=== PATIENT | male | born 1945 | race Caucasian/White ===

== ENCOUNTER 2016-06-23 21:20 | Inpatient (IN) | payer OTHER ==
[~2016-06-23] VITALS: Ht 195.6 cm; Wt 124.7 kg
--- NOTE | 2016-06-23 21:39 | NUR ---
RECEIVED 71 YO MALE C/O SUDDEN ONSET OF RIGHT SHOULDER PAIN RADIATING TO RIGHT ARM AND HAND. RIGHT ARM AND ELBOW PAIN INCREASES WITH MOVEMENT AND PT IS UNABLE TO SQUEEZE RIGHT FINGERS. PT REPORTS NO STRENGTH IN RIGHT FINGERS. NO FACIAL DROOP, SLURRED SPEECH OR RIGHT LEG SYMPTOMS.
--- NOTE | 2016-06-23 21:40 | NUR ---
PT REPORTS PAIN STARTED ABOUT 7 PM TONITE
--- NOTE | 2016-06-23 21:47 | NUR ---
SPOKE TO DR GARCIA CONCERNING SYMPTOMS. PT SENT TO [facility] FOR EKG, BLOOD DRAWN AND THEN CT SCAN OF HEAD.
--- NOTE | 2016-06-23 22:03 | ED GENERAL ADULT ---
History of Present Illness General Chief Complaint: Upper Extremity Problem Stated Complaint: R SHOULDER PAIN RADIATING DOWN ARM AND HANDS, -CP Source: patient, family Exam Limitations: no limitations Allergies Coded Allergies: NO KNOWN ALLERGIES (04/20/15) Reconcile Medications Aspirin (Aspirin*) 81 MG TAB.CHEW 81 MG PO DAILY HEART HEALTH Atorvastatin Calcium 80 MG TABLET 80 MG PO 1700 HEART PROTECTION Diclofenac Sodium 75 MG TABLET.DR 1 TAB PO BID PRN OSTEOARTHRITIS (Reported) Lisinopril 20 MG TABLET 1 TAB PO DAILY HTN (Reported) Metformin HCl (Metformin HCl ER) 500 MG TAB.ER.24 1 TAB PO DAILY DIABETES ( Reported) Triage Note: RECEIVED 71 YO MALE C/O SUDDEN ONSET OF RIGHT SHOULDER PAIN RADIATING TO RIGHT ARM AND HAND. RIGHT ARM AND ELBOW PAIN INCREASES WITH MOVEMENT AND PT IS UNABLE TO SQUEEZE RIGHT FINGERS. PT REPORTS NO STRENGTH IN RIGHT FINGERS. NO FACIAL DROOP, SLURRED SPEECH OR RIGHT LEG SYMPTOMS. Triage Nurses Notes Reviewed? yes HPI: Patient is a 71-year-old male presents complaining of right upper arm pain and weakness of his right hand. Symptoms onset between 6:30 and 7 PM this evening. Pain is moderate, worsened with arm movement. Weakness in the right hand is moderate to severe. Patient was at a meeting when he had the onset of his symptoms. Patient is right-hand dominant. Patient denies blurred vision, change in his speech, recent trauma (ALY MUNOZ) Vital Signs & Intake/Output Vital Signs & Intake/Output ED Intake and Output 06/25 0000 06/24 1200 Intake Total 240 Output Total Balance 240 Intake, Oral 240 Patient 275 lb Weight Past History Travel History Traveled to [place] past 21 day No Medical History Any Pertinent Medical History? see below for history Neurological: NONE EENT: NONE Cardiovascular: hypertension Respiratory: NONE Gastrointestinal: NONE Hepatic: NONE Renal: NONE Musculoskeletal: NONE Psychiatric: NONE Endocrine: diabetes Tetanus Vaccine: 04/20/15 Surgical History Surgical History: non-contributory Psychosocial History What is your primary language Danish Tobacco Use: Current Daily Use Daily Tobacco Use Amount/Type: => 5 Cigarettes daily Family History Hx Contributory? No (ALY MUNOZ) Review of Systems Review of Systems Constitutional: Denies: chills, fever. EENTM: Denies: blurred vision, visual changes. Respiratory: Denies: cough, short of breath. Cardiovascular: Denies: chest pain. GI: Denies: abdominal pain. Musculoskeletal: Reports: see HPI. Denies: back pain, neck pain. Skin: Reports: no symptoms. Neurological/Psychological: Reports: see HPI. Denies: headache. Hematologic/Endocrine: Denies: bruising, bleeding. Immunologic/Allergic: Denies: splenectomy. (RITO SIEGEL,AL[place]) Physical Exam Physical Exam General Appearance: well developed/nourished, no apparent distress, alert, awake Head: atraumatic, normal appearance Eyes: Bilateral: normal appearance. Ears, Nose, Throat: normal pharynx, normal ENT inspection, hearing grossly normal Neck: normal inspection, supple, full range of motion Respiratory: normal breath sounds, no respiratory distress, lungs clear Cardiovascular: regular rate/rhythm (no appreciable murmur) Peripheral Pulses: 2+ radial (R) Gastrointestinal: soft, non-tender Back: normal inspection, normal range of motion Extremities: normal inspection, normal capillary refill, decreased public health social worker strength right hand 3/5. Neurologic/Psych: decreased public health social worker strength right hand. right biceps and brachioradialis reflexes 2+. right biceps strength and shoulder strength 5/5 Reflexes: 2+: bicep (R). Skin: intact, normal color, warm/dry Lymphatic: no anterior cervical kita Core Measures ACS in differential dx? Yes CVA/TIA Diagnosis: Yes NIH Stroke Scale: Total 0 Dt/Tm Last Known Well: Yes Date Last Known Well: 06/23/16 Time Last Known Well: 1844 Neurological S/S of CVA: Muscle Weakness, Weakness of Limb Symptom start date: 06/24/16 Symptom start time: 1844 Severe Sepsis Present: No Septic Shock Present: No Bedside Swallow Eval Done: Yes Result of Evaluation: Pass (ALY MUNOZ) Progress Differential Diagnoses I considered the following diagnoses in my evaluation of the patient: Nerve impingement, cord compression, CVA, rotator cuff injury, radial nerve palsy Diagnostic Imaging: Viewed by Me: CT Scan. Discussed w/RAD: CT Scan. Initial ED EKG: none Comments: PATIENT: JEFF MOSQUERA PRESENT AGE: 71 PATIENT ACCOUNT NO: [id number] : 47 LOCATION: [facility] ORDERING PHYSICIAN: ALY SIEGEL SERVICE DATE: 06/23/16 EXAM TYPE: CAT - CT CERV SPINE WO IV CONTRAST; CT HEAD WO IV CONTRAST EXAMINATION: NONCONTRAST HEAD CT NONCONTRAST CERVICAL SPINE CT INDICATION INFORMATION: Left arm weakness and pain. Cervical radiculopathy. COMPARISON: None TECHNIQUE: Separate noncontrast CT examinations of the head and cervical spine were performed. Coronal and sagittal images were created for each examination at the technologist workstation. FINDINGS: Head: There is no evidence of acute intracranial hemorrhage or territorial infarction. No abnormal mass effect or midline shift is seen. Ferguson to white matter differentiation is well preserved. No extra-axial fluid collections are identified. No hydrocephalus. No significant volume loss. There is no abnormal attenuation within the brain parenchyma. The osseous structures and soft tissues are normal. There is retention cyst in the right maxillary sinus. The mastoid air cells are well aerated. The remaining paranasal sinuses which are visualized are well aerated. Cervical spine: There is anatomic alignment of the vertebral bodies and posterior elements. The atlantoaxial and atlantooccipital articulations are intact. Vertebral body heights are maintained. There is multilevel intervertebral disc space narrowing with endplate osteophyte formation and facet arthropathy. Moderate bony neuroforaminal narrowing is seen on the left at C2-C3 and C3-C4. Additional more mild neuroforaminal narrowing is seen at multiple additional levels. No evidence of acute fracture. No prevertebral soft tissue swelling. Visualized portions of the lung apices are unremarkable. The thyroid gland is unremarkable. IMPRESSION: 1. No acute intracranial findings. 2. Moderate multilevel degenerative changes of the cervical spine, most prominently seen on the left at C2-C3 and C3-C4. DICTATED BY: MARC QUARLES MD DATE/TIME DICTATED:06/23/162254 INDUSTRIAL ORDER CLERK:ANTWON DATE/TIME TRANSCRIBED:06/23/162254 CONFIDENTIAL, DO NOT COPY WITHOUT APPROPRIATE AUTHORIZATION. <Electronically signed in Other Vendor System> SIGNED BY: MARC QUARLES MD 06/23 3422 (ALY MUNOZ) Plan of Care: Orders Procedure Date/time Status Discharge Patient 06/24 UNK Active 2230: Discussed with and seen by Dr. Rockwell. 06/23/2016 11:31:21 PM: Patient reevaluated. Results of CT scans discussed with patient and his . Patient having weakness and decreased flexion of his right second and third digits. Neurology paged to discuss. 06/23/2016 11:35:51 PM: Discussed with Dr. Powers: cannot say if this is central or peripheral etiology of neurologic deficit. Patient will need MRI imaging to further characterize. Dr. Rockwell discussed patient with Dr. Baltazar for admission. (ALY MUNOZ) Departure Departure Time of Disposition: 23 Disposition: STILL A PATIENT Condition: Stable Clinical Impression Primary Impression: Right hand weakness Referrals: DMITRIY SCHMIDT MD (PCP/Family) Departure Forms: Customer Survey General Discharge Information Prescriptions: Current Visit Scripts Aspirin (Aspirin*) 81 MG PO DAILY #30 Atorvastatin Calcium 80 MG PO 1700 #30 (ALY MUNOZ) Admission Note Spoke With: EDUARDO BALTAZAR MD Documentation of Exam: Documentation of any treatments & extenuating circumstances including Concerns Regarding Discharge (functional status, medication knowledge or non-compliance, living conditions, etc.) that warrant an admission rather than observation: Patient presents with significant right hand weakness of an unclear cause. Although stroke is a possibility, so are C-spine pathology and radiculopathy/ neuropraxia. The patient's symptoms involve his dominant hand placing him at very high morbidity if the underlying cause is not determined and treated. Patient should be admitted for telemetry due to the possibility of dysrhythmia and associated cardioembolic phenomenon. He should have repeated neurologic checks. Neurology consultation should also be obtained as well as an MRI scan of the brain and cervical spine. Patient should also be treated for his symptoms. Given the significant debility the patient is currently suffering, physical therapy should also be obtained. I feel he will require a multiple day hospitalization. PA/PIPE SMOKING MACHINE OFFBEARER Co-Sign Statement Statement: ED Attending supervision documentation- [x] I saw and evaluated the patient. I have also reviewed all the pertinent lab results and diagnostic results. I agree with the findings and the plan of care as documented in the PA's/PIPE SMOKING MACHINE OFFBEARER's documentation. Patient presents for weakness of the right shoulder and right hand noted that just before 7:00 this evening while coming out of a meeting. Patient denies any prior episodes. He states he is having great difficulty closing his hand. He denies any associated trauma. He denies any unusual exertion. Speech and gait are unaffected. Patient has weakness of the right hand (radial median and ulnar nerve distributions) with otherwise normal sensation to light touch and normal biceps deep tendon reflex. Concern for CVA, nerve impingement or cervical cord compression. [] I have reviewed the ED Record and agree with the PA's/PIPE SMOKING MACHINE OFFBEARER's documentation. [] Additions or exceptions (if any) to the PAs/PIPE SMOKING MACHINE OFFBEARER's note and plan are summarized below: [] (RADHA REGAN,MAXX Rowell) Critical Care Note Critical Care Note Critical Care Time: non-applicable (RITO SIEGEL,AL[place])
[2016-06-23 22:09] LABS: ABSOLUTE BASOPHIL COUNT 0 /CUMM (0.0-0.2); ABSOLUTE EOSINOPHIL COUNT 0.1 /CUMM (0.0-0.7); ABSOLUTE GRANULOCYTE CT 8.5 /CUMM (1.4-6.5); BASOPHIL % 0.3 % (0.0-2.0); EOSINOPHIL % 1.3 % (0-5); GRANULOCYTE % 79.5 % (42.2-75.2); MEAN CORPUSCULAR HGB 31.9 PG (27.0-31.0); MEAN CORPUSCULAR HGB CONC 34.3 G/DL (33.0-37.0); MEAN CORPUSCULAR VOLUME 93.1 FL (80.0-94.0); MEAN PLATELET VOLUME 8.2 FL (7.4-10.4); PLATELET COUNT 168 /CUMM (130-400); RBC DISTRIBUTION WIDTH 12.9 % (11.5-14.5); RED BLOOD CELL CT 4.51 /CUMM (4.70-6.10); WHITE BLOOD CELL COUNT 10.6 /CUMM (4.8-10.8)
[2016-06-23 22:18] LABS: PT 11.8 SEC (9.4-12.5)
--- NOTE | 2016-06-23 22:19 | NUR ---
PT TO CT.
--- NOTE | 2016-06-23 22:30 | NUR ---
RETURNED FROM CT VIA W/C PT ABLE TO BALANCE ON 1 LEG WHILE TRANSFERRING TO STRETCHER.
--- NOTE | 2016-06-23 23:03 | CT SCAN REPORT ---
EXAMINATION: NONCONTRAST HEAD CT NONCONTRAST CERVICAL SPINE CT INDICATION INFORMATION: Left arm weakness and pain. Cervical radiculopathy. COMPARISON: None TECHNIQUE: Separate noncontrast CT examinations of the head and cervical spine were performed. Coronal and sagittal images were created for each examination at the technologist workstation. FINDINGS: Head: There is no evidence of acute intracranial hemorrhage or territorial infarction. No abnormal mass effect or midline shift is seen. Ferguson to white matter differentiation is well preserved. No extra-axial fluid collections are identified. No hydrocephalus. No significant volume loss. There is no abnormal attenuation within the brain parenchyma. The osseous structures and soft tissues are normal. There is retention cyst in the right maxillary sinus. The mastoid air cells are well aerated. The remaining paranasal sinuses which are visualized are well aerated. Cervical spine: There is anatomic alignment of the vertebral bodies and posterior elements. The atlantoaxial and atlantooccipital articulations are intact. Vertebral body heights are maintained. There is multilevel intervertebral disc space narrowing with endplate osteophyte formation and facet arthropathy. Moderate bony neuroforaminal narrowing is seen on the left at C2-C3 and C3-C4. Additional more mild neuroforaminal narrowing is seen at multiple additional levels. No evidence of acute fracture. No prevertebral soft tissue swelling. Visualized portions of the lung apices are unremarkable. The thyroid gland is unremarkable. IMPRESSION: 1. No acute intracranial findings. 2. Moderate multilevel degenerative changes of the cervical spine, most prominently seen on the left at C2-C3 and C3-C4.
--- NOTE | 2016-06-23 23:03 | NUR ---
BOTH PATIENT AND SPOUSE SLEEPING. AWAITING CT RESULTS
--- NOTE | 2016-06-24 00:33 | History & Physical ---
JAQUELIN REGAN,LUCAS 06/24/16 0031: General Information and HPI MD Statement: I have seen and personally examined JEFF MOSQUERA and documented this H&P. The patient is a 71 year old M who presented with a patient stated chief complaint of []. Source of Information: patient, family Exam Limitations: no limitations History of Present Illness: Patient is a 71-year-old male significant past medical history of hypertension, type 2 diabetes presented with chief complaints of pain in right shoulder. Preliminary right shoulder started at 7 p.m.. 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 On examination, patient is not able to overhead abduct his arm. On further evaluation, we found that the patient is working in [employer], and occassionally lift weight, although he denies any correlation of lifting weight and suudenly started having pain. Denies of any headache, nausea, vomiting, fall, trauma, weakness in any part of the body, incontinence of stool and urine, slurring of the speech, difficulty in the swallowing. Allergies-no known drug allergies Personal history-he is retired 5 years ago and now working in [employer], smokes 1 PPD since last 35 years and trying to quit, social drinker, denies illicit drug use family history -noncontributory Allergies/Medications Allergies: Coded Allergies: NO KNOWN ALLERGIES (04/20/15) Past History Travel History Traveled to [place] past 21 day No Medical History Neurological: NONE EENT: NONE Cardiovascular: hypertension Respiratory: NONE Gastrointestinal: NONE Hepatic: NONE Renal: NONE Musculoskeletal: NONE Psychiatric: NONE Endocrine: diabetes Tetanus Vaccine: 04/20/15 Surgical History Surgical History: non-contributory Review of Systems Review of Systems Constitutional: Denies: no symptoms, see HPI, chills, diaphoresis, fever, malaise, weakness, unexplained weight loss. EENTM: Denies: no symptoms. Cardiovascular: Denies: no symptoms. Respiratory: Denies: no symptoms. GI: Denies: no symptoms. Genitourinary: Reports: frequency. Musculoskeletal: Reports: back pain, joint pain, neck pain. Skin: Denies: no symptoms. Neurological/Psychological: Reports: anxiety, unable to move upper ext. Exam & Diagnostic Data Last 24 Hrs of Vital Signs/I&O Vital Signs Date Time Temp Pulse Resp B/P Pulse O2 O2 Flow FiO2 Ox Delivery Rate 06/24 0050 98.5 82 16 155/85 97 06/23 2141 99.0 78 16 144/73 96 Room Air Intake & Output 06/24 0800 06/24 0000 06/23 1600 Intake Total 0 Output Total Balance 0 Intake, Oral 0 Patient 124.738 kg Weight Physical Exam General Appearance Alert, Oriented X3, Cooperative, No Acute Distress Skin No Rashes, No Breakdown HEENT Atraumatic, PERRLA, EOMI Neck Supple, No JVD Cardiovascular Normal S1, Normal S2, No Murmurs Lungs Clear to Auscultation, Normal Air Movement Abdomen Soft, No Tenderness Neurological Normal Gait, Normal Speech, Strength at 5/5 X4 Ext, Normal Tone, Sensation Intact, Cranial Nerves 3-12 NL, Reflexes 2+, decrease 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 in right fist, painful movents of fingers, sensation is intact in the right arm (the and) Extremities No Clubbing, No Cyanosis, No Edema Vascular Normal Pulses, Pulses Symmetrical ( a) Last 24 Hrs of Labs/[place]: Laboratory Tests 06/23/162158: Anion Gap 13, Estimated GFR > 60, BUN/Creatinine Ratio 22.5, Glucose 118 H, Hemoglobin A1c Pending, Calcium 9.5, Total Bilirubin 0.9, AST 30, ALT 58, Alkaline Phosphatase 63, Total Protein 6.5, Albumin 4.1, Globulin 2.4, Albumin/ Globulin Ratio 1.7, PT 11.8, INR 1.13, D-Dimer 217, CBC w Diff NO MAN DIFF REQ, RBC 4.51 L, MCV 93.1, MCH 31.9 H, RDW 12.9, MPV 8.2, Gran % 79.5 H, Lymphocytes % 9.8 L, Monocytes % 9.1, Eosinophils % 1.3, Basophils % 0.3, Absolute Granulocytes 8.5 H, Absolute Lymphocytes 1.0 L, Absolute Monocytes 1.0 H, Absolute Eosinophils 0.1, Absolute Basophils 0, PUBS MCHC 34.3 Diagnostic Data EKG Results Heart rate 79, QTC 409, normal sinus rhythm, no ST-T wave changes Assessment/Plan Assessment: Patient is a 71-year-old male significant past. He history of hypertension, type 2 diabetes presented with chief complaints of pain in right shoulder. Vital signs at the time of admission -temperature 99.9, pulse 70, respiratory rate 16, blood pressure 141/72, Xanax, SPO2 96% on room air CT scan of head and cervical spine - No acute intracranial findings. Moderate multilevel degenerative changes of the cervical spine, most prominently seen on the left at C2-C3 and C3-C4. Pertinent labs -CBC -Wnl, Granulocyte -79.5, Na -132, rest BEp -wnl EKG -Heart rate 79, QTC 409, normal sinus rhythm, no ST-T wave changes Plan- Acute neurological deficit probably secondary to CVA, cord compression,carotid dissection * CT scan of head is normal * We will do MRI brain to r/o stroke and cx spine to know cord compression, and MRA for possible caroitd dissection * We will do echo - to r/o PFO, valular abnormality * we will place consult for cardiology and neurology and follow their rcms * Neurocheck Q4 Pain in right shoulder - tendinitis/tendon rupture * We will do shoulder X ray and if needed than CT shoulder * We will consider Orhtopedics consult * Pain medicines according to pain scale Hypertention * we will continue Lisinopril as before Type 2 DM * We will check Blood Sugar TID/HS * Novalog according to sliding scale * if everything is negative we will restart him on Metformin on home doses Diet - carbohydrate type -2 Diet DVT prophylaxis - ALPS/Heparin Code status -FC As Ranked By This Provider Problem List: 1. Shoulder pain, right 2. Hypertension 3. Type 2 diabetes mellitus Core Measures/Miscellaneous Acute Coronary Syndrome ACS Diagnosis: No Cerebrovascular Accident CVA/TIA Diagnosis: Yes Date Last Known Well: 06/23/16 Time Last Known Well: 1844 Neurological S/S of CVA: Muscle Weakness, Weakness of Limb Symptom Start Date: 06/24/16 Symptom Start Time: 1844 Bedside Swallow Eval Done: Yes Result of Evaluation: Pass Congestive Heart Failure CHF Diagnosis: No Venous Thromboembolism VTE Risk Factors: Age > 40, Obesity [facility] prophylaxis d/t: No contraindications No VTE Pharm Prophylaxis d/t: No contraindications VTE Diagnosis: No VTE Type: NONE VTE Confirmed by (Test): NONE Severe Sepsis Severe Sepsis Present: No Septic Shock Septic Shock Present: No Miscellaneous Documentation Attending Case Discussed With: Dr. Eduardo Baltaazr Primary Care Physician: BRAYAN REGAN,DMITRIY Gonzales Patient sees these Specialists Monae Ponce MD galley hand Dr. Baker medical assisting instructor Dr. Turner urologist Level of Patient Care: Telemetry SHANELLE LOPEZ 06/24/16 0039: General Information and HPI Allergies/Medications Home Med list Diclofenac Sodium 75 MG TABLET.DR 1 TAB PO BID PRN OSTEOARTHRITIS (Reported) Lisinopril 20 MG TABLET 1 TAB PO DAILY HTN (Reported) Metformin HCl (Metformin HCl ER) 500 MG TAB.ER.24 1 TAB PO DAILY DIABETES ( Reported) Resident Review Statement Resident Statement: examined this patient, discussed with senior internet sales consultant, agreed with senior internet sales consultant, discussed with family, reviewed EMR data (avail), discussed with nursing , discussed with case mgmt, reviewed images, amended to note Other Findings: 71-year-old man who is a current smoker, the past medical history of hypertension, wga-noamkcg-ojwmrvtqv diabetes mellitus, BPH presented with a chief complaint of sudden onset of right shoulder pain radiating to the arm and hand together with weakness of his right hand that started around 6:37 PM this evening. According to the patient he was in his usual state of health up until 6:37 PM this evening when he started to experience sudden onset of right-sided shoulder pain with subsequent tingling and paresthesias in his elbow and fingers. He states that he has a dull ache in his right shoulder as well as his wrists and took joint and feels funny in the right arm. He denies any history of trauma however does admit to having lifted heavy boxes earlier this morning. Of note patient had come home from work and was away on an office meeting when the symptoms started. He denies any headache, blurry vision, chest pain, palpitations, nausea, vomiting, diaphoresis, recent history of infection, fever, chills, photophobia, any seizure-like activity including urinary or fecal incontinence, tongue biting or jerking movements. 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 He has no surgical history, no known drug allergies however he is a current smoker with a [id number] smoking history. Vitals at the time of admission blood pressure 144/73, respiratory rate 16, pulse 78, MAXIMUM TEMPERATURE 99 saturating 96% on room air. On physical exam, he is alert and oriented 3 and in no acute distress sitting comfortably in bed. HEENT revealed PERRLA, moist mucous membranes. Cardiac examination of the neck did not reveal any JVD, cervical lymphadenopathy and no carotid bruit present. Chest was clear to auscultation bilaterally. Cardiovascular exam pertinent for normal S1, S2, no murmurs rubs or gallops appreciated. Abdominal exam is benign and abdomen soft, nontender, nondistended bowel sounds heard in all 4 quadrants. Examination of lower extremities did not reveal any edema. Neuro exam revealed cranial nerves II-12 grossly intact, strength 3 out of 5 in right upper extremity at the level of the wrist, 4 out of 5 at the level of the elbow and 4 out of 5 at the level of the shoulder joint. Strength was 5 out of 5 in left upper extremity throughout. Strength is also 5 out of 5 in his lower extremities, plantars downgoing and reflexes 2+ in all 4 extremities. Sensations were grossly intact. Gait was evaluated and was normal , Romberg's test was negative. Examination of right upper extremity revealed tenderness on palpation in the subacromial joint, with pain on abduction of RUE. Labs pertinent for no white blood cell count of 10,600, H&H of 14.4/42.0 and a normal MCV of 93.1 and a platelet count of 168,000. Serum chemistries pertinent for sodium of 132, potassium of 4.2, bicarbonate of 24, anion gap of 13, BUN 18 and a creatinine of 0.8. Serum glucose was elevated to 118. LFTs were unremarkable with an AST/of 30/58, total bilirubin 0.9 alkaline phosphatase of 63. Last echocardiogram was in February 2010 which revealed diastolic filling pattern consistent with impaired left ventricular relaxation with an EF of 55%, mildly dilated aortic root. Head and cervical spine CT was done which showed no acute intracranial findings, moderate multilevel degenerative changes of the cervical spine most prominently seen on the left side at C2 to C3 and C3 to C4. In the ER he received aspirin 81 mg 1 Assessment and plan Admit patient to telemetry to rule out TIA versus stroke. #Right upper extremity weakness Most likely 2/2 peripheral neuropathy from degenerative changes in cervical spine versus stroke versus TIA Patient was out of the window to receive TPA. NIH stroke scale every 4 hours MRI of the brain in a.m. to rule out ischemic stroke Neurology consult in a.m. with Dr. Lujan Cardiology consult with Dr. Ponce in a.m. Follow-up carotid ultrasound and echocardiogram to rule out for any embolic source. Maintain on telemetry to rule out for any arrhythmias. Follow-up lipid panel in a.m. Start him on aspirin as well as atorvastatin 80 mg daily PT/OT eval in a.m. Right shoulder X ray top r.o arthritis #Hypertension Currently stable Holding lisinopril 20 mg daily to allow for permissive HTN #Ete-qjzqoxn-fyrffbqil diabetes mellitus He is on metformin 500 mg daily. We'll switch him to NovoLog sliding scale while inpatient Accu-Cheks 3 times a day at bedtime F/U Hemoglobin A1c #Osteoarthritis Continue on diclofenac sodium 75 mg twice a day as needed DVT prophylaxis Heparin 5000 international units 3 times a day subcutaneous Diet Patient passed bedside swallow eval On consistent carb 2 diet CODE STATUS Full code EDUARDO BALTAZAR 06/24/16 0115: Attending MD Review Statement Attending Statement Attending MD Statement: examined this patient, discuss w/resident/PA/BULLDOZER MECHANIC, agreed w/resident/PA/BULLDOZER MECHANIC, discussed with family, reviewed EMR data (avail), reviewed images, amended to note Attending Assessment/Plan: CC: right hand tingling numbness, 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 Shoulder pain is moderate, worsened with arm movement, cannot lift arm above shoulder line because of pain. recent steroid injection in left knee. Last 2 D echo 1 year back, outpatient, normal. Vitals: Unremarkable. On exam: A O 3, cooperative, no acute distress, neck supple, no JVD, no lymphadenopathy, mucosa moist, no dependent edema, no obvious skin rashes or inflammation CVS: S1-S2, RRR. RS: diffuse wheezing bilaterally. Abdomen: Soft, NT, ND, bowel sounds present. 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 No other focal weakness. Labs: CBC, BMP, LFT unremarkable CT head, CT cervical spine: 1. No acute intracranial findings. 2. Moderate multilevel degenerative changes of the cervical spine, most prominently seen on the left at C2-C3 and C3-C4. 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 Suspect CVA, Hx significant for HTN, DM, smoking. Out of window for TPA. - Admit to telemetry - Bedside swallow - MRI brain complete with and without contrast - Aspirin 81 mg - Atorvastatin 40 mg - Neurology consult - Carotid Doppler - 2-D echo - Telemetry monitoring - Neurochecks every 4 hours - Hold metformin, continue sliding scale insulin - Hold lisinopril, permissive hypertension - X-ray of right shoulder
--- NOTE | 2016-06-24 01:00 | NUR ---
house staff at bedside to eval pt
[2016-06-24] MEDS ORDERED: METFORMIN HCL500 M2 PO (01:23)
[2016-06-24] MEDS ORDERED: LISINOPRIL20 M1 PO (01:24)
[2016-06-24] MEDS ORDERED: DICLOFENAC SODI75 M2 PO (01:24)
--- NOTE | 2016-06-24 01:37 | NUR ---
PT BED ASSIGNMENT 185-1
--- NOTE | 2016-06-24 01:47 | NUR ---
FINGERSTICK 140. PT IS 6' 5" TALL AND REQUESTS TO BE ALLOWED TO STAY IN HIS CHORTS AND T-SHIRT.
--- NOTE | 2016-06-24 01:50 | NUR ---
REPORT GIVEN TO TRACI MATTHEWS
--- NOTE | 2016-06-24 02:05 | Admission Certification ---
Admission Certification Certification Statement - As attending physician, I certify that at the time of - admission, based on clinical presentation, severity of - symptoms, need for further diagnostic testing and - therapeutic interventions, and risk of adverse outcomes - without in-hospital treatment, in my clinical assessment, - this patient requires an acute hospital stay for a minimum - of two nights or longer. I have also considered psychsocial - factors such as support system, advanced age, financial - issues, cognitive issues, and failed out-patient treatments, - past re-admission history, safety of patient, and lack of - compliance as applicable. Specific rationale supporting this admission is: right hand weakness, suspect CVA
[2016-06-24 03:20] VITALS: BP 152/80
--- NOTE | 2016-06-24 07:16 | PN- Housestaff ---
Subjective Follow-up For: 1. Right shoulder pain 2. Right hand weakness Tele-Events Since Last Visit: Normal sinus rhythm between 77-92, PVCs, couplets Subjective: In the morning today the patient continues to complain of right hand weakness and inability to to make complete fist, in addition he also reported developing weakness of the left hand although less severe than the right one. He still has minimal pain in the right shoulder although marked improved since yesterday. He reported better range of motion and is now able to lift his arm up above the shoulder, to about 100 degrees. Reported feeling sore overall, and knee pain scattered baseline and he's had them for a while. 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 Denied any chest pain, nausea vomiting diarrhea, palpitations, visual changes, lightheadedness, dizziness, urinary complaints. Review of Systems Constitutional: Reports: see HPI. Cardiovascular: Reports: no symptoms. Respiratory: Reports: no symptoms. Gastrointestinal: Reports: no symptoms. Genitourinary: Reports: no symptoms. Musculoskeletal: Reports: see HPI. Denies: joint pain, muscle pain. Skin: Reports: no symptoms. Objective Last 24 Hrs of Vital Signs/I&O Vital Signs Date Time Temp Pulse Resp B/P B/P Pulse O2 O2 Flow FiO2 Mean Ox Delivery Rate 06/24 0755 99.3 78 18 144/60 98 Room Air 06/24 0320 99.1 80 20 152/80 99 Room Air 06/24 0243 97 Room Air 06/24 0050 98.5 82 16 155/85 97 06/23 2141 99.0 78 16 144/73 96 Room Air Intake & Output 06/24 1600 06/24 0800 06/24 0000 Intake Total 240 0 Output Total Balance 240 0 Intake, Oral 240 0 Patient 275 lb 275 lb Weight Physical Exam General Appearance: Alert, Oriented X3, Cooperative, No Acute Distress Skin: No Rashes, No Breakdown, No Significant Lesion HEENT: PERRLA, EOMI, Mucous Membr. moist/pink Neck: Supple, No JVD Cardiovascular: Regular Rate, Normal S1, Normal S2, No Murmurs Lungs: Clear to Auscultation, Normal Air Movement Abdomen: Normal Bowel Sounds, Soft, No Tenderness, No Hepatospenomegaly Neurological: Normal Gait, Normal Speech, Normal Tone, Sensation Intact, Cranial Nerves 3-12 NL, Right hand head school custodian 3/5 left hand head school custodian 4/5 abduction right arm approx 100 degrees, with pain and stiffness power in LUE, LLE, RLE 5/5 Current Medications: Current Medications Sig/Irma Start time Last Medication Dose Route Stop Time Status Admin Acetaminophen 650 MG Q6P PRN 06/24 0045 AC PO Acetaminophen/ 1 TAB Q6P PRN 06/24 0045 AC Hydrocodone Bitart PO Aspirin 81 MG DAILY 06/24 1000 AC PO Aspirin 0 .STK-MED ONE 06/24 004 DC PO Aspirin 81 MG ONCE ONE 06/24 0015 DC 06/24 PO 06/24 0016 0048 Atorvastatin Calcium 80 MG 1700 06/24 1700 AC PO Diclofenac Sodium 75 MG BID PRN 06/24 0130 AC PO Heparin Sodium 5,000 UNIT Q8 06/24 0600 AC 06/24 (Porcine) SC 0642 Insulin Aspart 0 TIDAC 06/24 0800 AC SC Lisinopril 20 MG DAILY 06/24 1000 CAN PO Oxycodone/ 2 TAB Q6P PRN 06/24 004 AC Acetaminophen PO Last 24 Hrs of Lab/[place] Results Last 24 Hrs of Labs/Mics: Laboratory Tests 06/24/16 0630: Anion Gap 13, Estimated GFR > 60, BUN/Creatinine Ratio 23.3, Triglycerides 79, Cholesterol 134, LDL Cholesterol, Calc 76, HDL Cholesterol 43, Cholesterol/HDL Ratio 3, CBC w Diff NO MAN DIFF REQ, RBC 4.55 L, MCV 93.8, MCH 32.2 H, RDW 12.4, MPV 9.2, Gran % 79.6 H, Lymphocytes % 10.6 L, Monocytes % 8.6, Eosinophils % 1.0, Basophils % 0.2, Absolute Granulocytes 8.9 H, Absolute Lymphocytes 1.2, Absolute Monocytes 1.0 H, Absolute Eosinophils 0.1, Absolute Basophils 0, PUBS MCHC 34.3 06/24/16 0600: Lyme Disease Antibody Pending 06/23/169: Anion Gap 13, Estimated GFR > 60, BUN/Creatinine Ratio 22.5, Glucose 118 H, Hemoglobin A1c 6.6 H, Calcium 9.5, Total Bilirubin 0.9, AST 30, ALT 58, Alkaline Phosphatase 63, Total Protein 6.5, Albumin 4.1, Globulin 2.4, Albumin/ Globulin Ratio 1.7, PT 11.8, INR 1.13, D-Dimer 217, CBC w Diff NO MAN DIFF REQ, RBC 4.51 L, MCV 93.1, MCH 31.9 H, RDW 12.9, MPV 8.2, Gran % 79.5 H, Lymphocytes % 9.8 L, Monocytes % 9.1, Eosinophils % 1.3, Basophils % 0.3, Absolute Granulocytes 8.5 H, Absolute Lymphocytes 1.0 L, Absolute Monocytes 1.0 H, Absolute Eosinophils 0.1, Absolute Basophils 0, PUBS MCHC 34.3 Orders Radiology Findings: Head and cervical spine CT: IMPRESSION: 1. No acute intracranial findings. 2. Moderate multilevel degenerative changes of the cervical spine, most prominently seen on the left at C2-C3 and C3-C4. 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 His symptoms started with right shoulder pain and paresthesias elicited all fingers, temperature telemetry floor for possible CVA/tendinitis. Assessment and plan: 1. Right hand weakness: - The patient presented with right hand weakness, inability to completely make a fist, head school custodian strength 3/5, started at 6:30 PM the evening prior to this admission, denies any chest pain, blurry vision, headaches, palpitations, weakness elsewhere, facial droop. In the morning today he was also complaining of mild weakness that was not developing in the left hand, head school custodian strength 4/5. - Keeping in mind the patient's history of arthritis and multiple degenerative disc disease, history of getting steroid injections in his knees in the past, and lifting heavy objects in the past couple of days, this could be likely be worsening of arthritis or peripheral nerve compression however as he has a history of hypertension and diabetes which are risk factors for a stroke, CVA at this point cannot be completely ruled out. Because of hand joint involvement and stiffness, it could also be a rheumatological process but that can be worked up as an outpatient after the the other causes have been ruled out - We'll continue with aspirin, and atorvastatin for now - Awaiting brain MRI. But it is important note that the patient is extremely claustrophobic and may require Xanax versus an open MRI - We'll continue with Diclofenac, and by mouth Percocet/Vicodin for pain control - We can also consider checking Lyme serology as the patient has had a history of working in the yard and may have been bit by a tick at some point - Awaiting neurology input 2. Right shoulder pain: - The patient presented with right shoulder pain, inability to fully abduct the right arm above the shoulder, and history of lifting heavy objects indicating towards possible musculoskeletal versus joint pathology/tendinitis/worsening of arthritis. She cannot be completely ruled out, awaiting right shoulder x-ray report - We'll get orthopedics involved and continue with diclofenac and Percocet - He may benefit from physical therapy as 3. Ouz-mioidiz-hoairgkvs diabetes mellitus: - We'll hold metformin and continued on insulin sinus scale and Accu-Cheks 4. History of hypertension: - Blood pressure remains between 144-155 systolic blood pressure and 60-85 diastolic blood pressure - We'll continue with a simple 20 mg by mouth daily, that is his home dose 5. Carbohydrate consistent diet 6. Pain pathway: When necessary Tylenol/Vicodin/Percocet for mild/moderate/ severe pain respectively 7. Subcutaneous heparin for DVT prophylaxis 8. CODE STATUS: Full Problem List: 1. Right hand weakness 2. Shoulder pain, right 3. Hypertension 4. Type 2 diabetes mellitus Pain Ratin Pain Location: Right shoulder Pain Goal: Remain pain free Pain Plan: When necessary Tylenol, Vicodin, Percocet Tomorrow's Labs & Rationales: BEP for hyponatremia DVT/Prophylaxis: pharmacological Consulting Request: 1 Consulting Specialty: Neurology Consulting Physician: Dr. Lujan Reason for Consult: ?CVA Consulting Request: 2 Consulting Specialty: Orthopedics Consulting Physician: Jaziel Lopes MD Reason for Consult: right shoulder pain Discharge Plan Discharge Disposition: home Stable for Discharge? No
[2016-06-24 07:55] VITALS: BP 144/60
[2016-06-24 08:14] LABS: ABSOLUTE BASOPHIL COUNT 0 /CUMM (0.0-0.2); ABSOLUTE EOSINOPHIL COUNT 0.1 /CUMM (0.0-0.7); ABSOLUTE GRANULOCYTE CT 8.9 /CUMM (1.4-6.5); ABSOLUTE LYMPH COUNT 1.2 /CUMM (1.2-3.4); BASOPHIL % 0.2 % (0.0-2.0); GRANULOCYTE % 79.6 % (42.2-75.2); HEMATOCRIT 42.7 % (42-52); MEAN CORPUSCULAR HGB 32.2 PG (27.0-31.0); MEAN CORPUSCULAR HGB CONC 34.3 G/DL (33.0-37.0); MEAN CORPUSCULAR VOLUME 93.8 FL (80.0-94.0); MEAN PLATELET VOLUME 9.2 FL (7.4-10.4); PLATELET COUNT 169 /CUMM (130-400); RBC DISTRIBUTION WIDTH 12.4 % (11.5-14.5); RED BLOOD CELL CT 4.55 /CUMM (4.70-6.10); WHITE BLOOD CELL COUNT 11.2 /CUMM (4.8-10.8)
--- NOTE | 2016-06-24 10:16 | Cons- Neurology ---
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 Patient states the job entails some heavy lifting and reaching. Yesterday evening when he was attending a meeting he developed gradually worsening right shoulder and right hand pain with associated weakness but no numbness. He had his taken to the hospital because he wanted to make sure he was not "having a heart attack" He denied associated neck pain. He denied bowel or bladder symptoms. He denied speech chewing or swallowing difficulties. He denied chest pain or palpitations. He has been wheezing but he attributes this to seasonal allergies. He reports a remote history of what sounds like lumbar radiculopathy for which he has had a right foot drop in the past but which resolved nonoperatively. He had a recent aspiration and cortisone injection into the left knee. Allergies/Medications Allergies: Coded Allergies: NO KNOWN ALLERGIES (04/20/15) Home Med List: Diclofenac Sodium 75 MG TABLET.DR 1 TAB PO BID PRN OSTEOARTHRITIS (Reported) Lisinopril 20 MG TABLET 1 TAB PO DAILY HTN (Reported) Metformin HCl (Metformin HCl ER) 500 MG TAB.ER.24 1 TAB PO DAILY DIABETES ( Reported) Current Medications: Current Medications Sig/Irma Start time Last Medication Dose Route Stop Time Status Admin Acetaminophen 650 MG Q6P PRN 06/24 0045 AC PO Acetaminophen/ 1 TAB Q6P PRN 06/24 0045 AC Hydrocodone Bitart PO Aspirin 81 MG DAILY 06/24 1000 AC PO Aspirin 0 .STK-MED ONE 06/24 0049 DC PO Aspirin 81 MG ONCE ONE 06/24 0015 DC 06/24 PO 06/24 0016 0048 Atorvastatin Calcium 80 MG 1700 06/24 1700 AC PO Diclofenac Sodium 75 MG BID PRN 06/24 0130 AC PO Heparin Sodium 5,000 UNIT Q8 06/24 0600 AC 06/24 (Porcine) SC 0642 Insulin Aspart 0 TIDAC 06/24 0800 AC SC Lisinopril 20 MG DAILY 06/24 1000 CAN PO Oxycodone/ 2 TAB Q6P PRN 06/24 0045 AC Acetaminophen PO Review of Systems Review of Systems: REVIEW OF SYSTEMS: (-) = negative / normal blank = not discussed Neurologic: see HPI Eyes: Wears glasses ENT: (-) Constitutional: (-) CV: (-) Respiratory: (-) /Renal: (-) Musculoskeletal: See HPI; uses Aleve prn Skin: (-) Psychiatric: (-) Heme: (-) GI: (-) Allergy/Immune: Seasonal respiratory allergies Endocrine: (-) Other: (-) Past History Travel History Traveled to [place] past 21 day No Medical History Blood Transfusion Hx: No Neurological: NONE EENT: NONE Cardiovascular: hypertension Respiratory: NONE Gastrointestinal: NONE Hepatic: NONE Renal: NONE Musculoskeletal: osteoarthritis Psychiatric: NONE Endocrine: diabetes Blood Disorders: NONE Cancer(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 Home Services at Home: None Smoking Status: Current Everyday Smoker Exam & Diagnostic Data Vital Signs and I&O Vital Signs Date Time Temp Pulse Resp B/P B/P Pulse O2 O2 Flow FiO2 Mean Ox Delivery Rate 06/24 0755 99.3 78 18 144/60 98 Room Air 06/24 0320 99.1 80 20 152/80 99 Room Air 06/24 0243 97 Room Air 06/24 0050 98.5 82 16 155/85 97 06/23 2141 99.0 78 16 144/73 96 Room Air Intake & Output 06/24 1600 06/24 0800 06/24 0000 Intake Total 240 0 Output Total Balance 240 0 Intake, Oral 240 0 Patient 275 lb 275 lb Weight Physical Exam: PHYSICAL EXAMINATION: nl = normal NT or blank = not tested GENERAL Appearance: nl Head: nl Eyes: nl ENT: nl Neck: nl Carotids: nl Lungs: Upper airway wheezing Heart: nl Extremities: nl Spine: nl NEUROLOGIC MENTAL STATUS Level of consciousness: nl Orientation: nl Attention / Concentration: nl Memory: nl Fund of Knowledge: nl Speech / Language: nl NEUROLOGIC CRANIAL NERVES I: Olfaction: NT II: Optic nerves: nl Visual smith: nl III: Pupils: nl Levator palpebrae: nl III, IV, : Ocular alignment: nl Extraocular motility: nl Pursuits/ saccades: nl V: Facial sensation: nl Masseter/Pterygoids: nl VII: Facial Motor: nl VIII: Hearing (finger rub): nl IX, X: Uvula and palate: nl XI: SCM, Upper trap.: nl XII: Tongue: nl MOTOR / NEUROMUSCULAR Bulk: nl Tone: nl Strength: nl with the exception of variable giveaway weakness of the intrinsic hand muscles on the right which appeared to be associated with mild right hand arthralgias Rapid alternating movements: nl Fine motor movements: nl Abnormal / involuntary movements: none CEREBELLAR / COORDINATION: intact SENSATION: intact to light touch pin and joint position. Mildly reduced vibratory sense both feet DTR's symmetrically trace to 1+ in the upper extremities, with trace knee jerks and absent ankle jerks FALCON'S: (-) PLANTARS: Withdrawal bilaterally GAIT: nl Last 48 Hours of Lab Results: Laboratory Tests 06/24 06/24 0630 0600 Chemistry Sodium (137 - 145 mmol/L) 131 L Potassium (3.5 - 5.1 mmol/L) 4.5 Chloride (98 - 107 mmol/L) 95 L Carbon Dioxide (22 - 30 mmol/L) 23 Anion Gap (5 - 16) 13 BUN (9 - 20 mg/dL) 14 Creatinine (0.7 - 1.2 mg/dL) 0.6 L Estimated GFR (>60 ml/min) > 60 BUN/Creatinine Ratio (7 - 25 %) 23.3 Triglycerides (<150 mg/dL) 79 Cholesterol (< 200 MG/DL) 134 LDL Cholesterol, Calc (65 - 129 mg/dL) 76 HDL Cholesterol (40 - 60 mg/dL) 43 Cholesterol/HDL Ratio (0.00 - 4.88 %) 3 Hematology CBC w Diff NO MAN DIFF REQ WBC (4.8 - 10.8 /CUMM) 11.2 H RBC (4.70 - 6.10 /CUMM) 4.55 L Hgb (14.0 - 18.0 G/DL) 14.6 Hct (42 - 52 %) 42.7 MCV (80.0 - 94.0 FL) 93.8 MCH (27.0 - 31.0 PG) 32.2 H RDW (11.5 - 14.5 %) 12.4 Plt Count (130 - 400 /CUMM) 169 MPV (7.4 - 10.4 FL) 9.2 Gran % (42.2 - 75.2 %) 79.6 H Lymphocytes % (20.5 - 51.1 %) 10.6 L Monocytes % (1.7 - 9.3 %) 8.6 Eosinophils % (0 - 5 %) 1.0 Basophils % (0.0 - 2.0 %) 0.2 Absolute Granulocytes (1.4 - 6.5 /CUMM) 8.9 H Absolute Lymphocytes (1.2 - 3.4 /CUMM) 1.2 Absolute Monocytes (0.10 - 0.60 /CUMM) 1.0 H Absolute Eosinophils (0.0 - 0.7 /CUMM) 0.1 Absolute Basophils (0.0 - 0.2 /CUMM) 0 PUBS MCHC (33.0 - 37.0 G/DL) 34.3 Serology Lyme Disease Antibody Pending 06/23 2158 Chemistry Sodium (137 - 145 mmol/L) 132 L Potassium (3.5 - 5.1 mmol/L) 4.2 Chloride (98 - 107 mmol/L) 95 L Carbon Dioxide (22 - 30 mmol/L) 24 Anion Gap (5 - 16) 13 BUN (9 - 20 mg/dL) 18 Creatinine (0.7 - 1.2 mg/dL) 0.8 Estimated GFR (>60 ml/min) > 60 BUN/Creatinine Ratio (7 - 25 %) 22.5 Glucose (65 - 99 mg/dL) 118 H Hemoglobin A1c (4.2 - 5.8 %) 6.6 H Calcium (8.4 - 10.2 mg/dL) 9.5 Total Bilirubin (0.2 - 1.3 mg/dL) 0.9 AST (17 - 59 U/L) 30 ALT (21 - 72 U/L) 58 Alkaline Phosphatase (< 127 U/L) 63 Total Protein (6.3 - 8.2 g/dL) 6.5 Albumin (3.5 - 5.0 g/dL) 4.1 Globulin (1.9 - 4.2 gm/dL) 2.4 Albumin/Globulin Ratio (1.1 - 2.2 %) 1.7 Coagulation PT (9.4 - 12.5 SEC) 11.8 INR (0.90 - 1.17) 1.13 D-Dimer (70 - 232 ng/ml) 217 Hematology CBC w Diff NO MAN DIFF REQ WBC (4.8 - 10.8 /CUMM) 10.6 RBC (4.70 - 6.10 /CUMM) 4.51 L Hgb (14.0 - 18.0 G/DL) 14.4 Hct (42 - 52 %) 42.0 MCV (80.0 - 94.0 FL) 93.1 MCH (27.0 - 31.0 PG) 31.9 H RDW (11.5 - 14.5 %) 12.9 Plt Count (130 - 400 /CUMM) 168 MPV (7.4 - 10.4 FL) 8.2 Gran % (42.2 - 75.2 %) 79.5 H Lymphocytes % (20.5 - 51.1 %) 9.8 L Monocytes % (1.7 - 9.3 %) 9.1 Eosinophils % (0 - 5 %) 1.3 Basophils % (0.0 - 2.0 %) 0.3 Absolute Granulocytes (1.4 - 6.5 /CUMM) 8.5 H Absolute Lymphocytes (1.2 - 3.4 /CUMM) 1.0 L Absolute Monocytes (0.10 - 0.60 /CUMM) 1.0 H Absolute Eosinophils (0.0 - 0.7 /CUMM) 0.1 Absolute Basophils (0.0 - 0.2 /CUMM) 0 PUBS MCHC (33.0 - 37.0 G/DL) 34.3 Imaging/Other Studies: Brain MRI today: Normal, but with some motion artifact Carotid ultrasound has been completed, results pending CT head 06/23/16: TECHNIQUE: Separate noncontrast CT examinations of the head and cervical spine were performed. Coronal and sagittal images were created for each examination at the technologist workstation. FINDINGS: Head: There is no evidence of acute intracranial hemorrhage or territorial infarction. No abnormal mass effect or midline shift is seen. Ferguson to white matter differentiation is well preserved. No extra-axial fluid collections are identified. No hydrocephalus. No significant volume loss. There is no abnormal attenuation within the brain parenchyma. The osseous structures and soft tissues are normal. There is retention cyst in the right maxillary sinus. The mastoid air cells are well aerated. The remaining paranasal sinuses which are visualized are well aerated. Cervical spine: There is anatomic alignment of the vertebral bodies and posterior elements. The atlantoaxial and atlantooccipital articulations are intact. Vertebral body heights are maintained. There is multilevel intervertebral disc space narrowing with endplate osteophyte formation and facet arthropathy. Moderate bony neuroforaminal narrowing is seen on the left at C2-C3 and C3-C4. Additional more mild neuroforaminal narrowing is seen at multiple additional levels. No evidence of acute fracture. No prevertebral soft tissue swelling. Visualized portions of the lung apices are unremarkable. The thyroid gland is unremarkable. IMPRESSION: 1. No acute intracranial findings. 2. Moderate multilevel degenerative changes of the cervical spine, most prominently seen on the left at C2-C3 and C3-C4. 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
--- NOTE | 2016-06-24 10:21 | NUR ---
Physical THerapy - Consult received and chart reviewed, pt is independent and does not require PT intervention per MDR discussion (MD and nursing confirm). OT consult ordered. WIll not follow.
--- NOTE | 2016-06-24 11:06 | MRI REPORT ---
EXAMINATION: MR BRAIN WITHOUT CONTRAST Only diffusion imaging obtained. Right arm weakness. Patient was extremely claustrophobic and refused to continue the examination. The diffusion acquisition is normal. There is no hydrocephalus or midline shift of structures.
--- NOTE | 2016-06-24 11:19 | RADIOLOGY REPORT ---
EXAMINATION: XR SHOULDER, RIGHT CLINICAL INFORMATION: Right shoulder pain. Right arm weakness. COMPARISON: None TECHNIQUE: 3 views of the right shoulder. FINDINGS: No acute fracture or dislocation. The humeral head articulates appropriately with the glenoid. The joint space is maintained. Marginal osteophytes are seen at the inferior glenoid. Mild degenerative changes of the acromioclavicular joint is well. The visualized lung is clear. IMPRESSION: Mild degenerative changes at the right shoulder.
[2016-06-24 11:34] VITALS: BP 144/60
--- NOTE | 2016-06-24 12:07 | Cons- Orthopedic ---
General Information and HPI Consulting Request Date of Consult: 06/24/16 Requested By: CONRAD SMITH MD History of Present Illness: 71 yr old male admitted for right arm pain and weakness. we were consulted for shoulder pain. states has pain in his shoulder radiating down his arm. stated orginally had some numbness in arm however that is resolving. rates his pain as 8. x-rays were taken of shoulder show a prominant subacromial spur and mild djd of shoulder. 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 Home Services at Home: None Smoking Status: Current Everyday Smoker Review of Systems Review of Systems: see chart Exam & Diagnostic Data Vital Signs and I&O Vital Signs Date Time Temp Pulse Resp B/P B/P Pulse O2 O2 Flow FiO2 Mean Ox Delivery Rate 06/24 1134 144/60 06/24 0755 99.3 78 18 144/60 98 Room Air 06/24 0320 99.1 80 20 152/80 99 Room Air 06/24 0243 97 Room Air 06/24 0050 98.5 82 16 155/85 97 06/23 2141 99.0 78 16 144/73 96 Room Air Intake & Output 06/24 1600 06/24 0800 06/24 0000 06/23 1600 06/23 0800 06/23 0000 Intake Total 240 0 Output Total Balance 240 0 Intake, Oral 240 0 Patient 275 lb 275 lb Weight Physical Exam: tender over right shoulder with motion. arom 90 ff and 90 abd. + impingement manuevers and jordan sign. weakness when testing rotator cuff tendon. 1/5 right hand grasp strength. + radial pulse. positive sensation to light touch right upper extremity. x-rays right shoulder show prominant subacromial spur and mild djd/oa of right shoulder. after prepping right shoulder 40mg kenalog and 8cc lidocaine was injected into the subacromial space. Assessment/Plan Assessment/Plan right shoulder impingement syndrome possible rotator cuff pathology - ice to right shoulder - cortisone injection was given to right shoulder today - consider mri of cervical spine may have HNP that is contributing to his right upper extremity pain and weakness - PT on right shoulder work on ROM - f/u as outpatient [phone] azevedo Consult Acknowledgment - Thank you for your consult request.
--- NOTE | 2016-06-24 12:23 | ULTRASOUND REPORT ---
EXAMINATION: DUPLEX BILATERAL CAROTID ULTRASOUND CLINICAL INFORMATION: TIA COMPARISON: None. TECHNIQUE: Duplex bilateral carotid US was performed using real-time ultrasound and Doppler techniques (integrating B-mode 2D vascular images, Doppler spectral analysis and color flow Doppler imaging). These techniques were utilized to interrogate the extracranial carotid and vertebral arteries bilaterally. The degree of stenosis is based off criteria similar to NASCET. FINDINGS: 1. On the right: Plaque is present at the carotid bifurcation but velocity measurements are normal and do not suggest a stenosis of greater than 50% diameter reduction in the right ICA. The right ECA demonstrates a mild stenosis with peak systolic velocity of under 200 cm/s. The vertebral artery is patent demonstrating antegrade flow. 2. On the left: Plaque is present at the carotid bifurcation but velocity measurements are normal and do not suggest a stenosis of greater than 50% diameter reduction in the left ICA. The left ECA demonstrates a mild stenosis with peak systolic velocity of under 200 cm/s. The vertebral artery is patent demonstrating antegrade flow. IMPRESSION: Plaque is present in the internal carotid arteries but velocity measurements are normal and there is no evidence to suggest a hemodynamically significant stenosis of greater than 50% diameter reduction.
[2016-06-24] MEDS ORDERED: ASPIRIN81 M4 PO (13:23)
--- NOTE | 2016-06-24 13:24 | Patient Discharge Instructions ---
Discharge Instructions General Discharge Information You were seen/treated for: 1. right shoulder pain due to nerve impingement Special Instructions: 1. Follow up with Dr. Sanchez after discharge 2. follow up with your PCP after discharge 3. COntinue with the new medications that have been started (Aspirin and Atorvastatin) 4. Make lifestyle modifications like physical activity 3-4 times a week and changing diet to more fruits and vegetables with less red meat and fatty foods. Diet Continue normal diet: Yes Recommended Diet: Diabetic, Heart Healthy Activity Full Activity/No Limits: Yes Acute Coronary Syndrome Inclusion Criteria At DC or during hospital stay patient has or had the following: ACS DIAGNOSIS No Discharge Core Measures Meds if any: Prescribed or Continued at Discharge Meds if any: NOT Prescribed or Continued at Discharge Congestive Heart Failure Inclusion Criteria At DC or during hospital stay patient has or had the following: CHF DIAGNOSIS No Discharge Core Measures Meds if any: Prescribed or Continued at Discharge Meds if any: NOT Prescribed or Continued at Discharge Cerebrovascular accident Inclusion Criteria At DC or during hospital stay patient has or had the following: CVA/TIA Diagnosis No Discharge Core Measures Meds if any: Prescribed or Continued at Discharge Meds if any: NOT Prescribed or Continued at Discharge Venous thromboembolism Inclusion Criteria VTE Diagnosis No VTE Type NONE VTE Confirmed by (Test) NONE Discharge Core Measures - Per Current guidelines, there needs to be overlap - treatment for the first 5 days of Warfarin therapy. - If discharged on Warfarin prior to 5 days of - overlap therapy, the patient will need to be - assessed for post discharge needs including - *Post discharge parental anticoagulation - *Warfarin and/or parental anticoagulation education - *Follow up date to check INR post discharge At least 5 days overlap therapy as Inpatient No Meds if any: Prescribed or Continued at Discharge Note: Overlap Therapy is Warfarin and Anticoagulant Meds if any: NOT Prescribed or Continued at Discharge
[2016-06-24] MEDS ORDERED: ATORVASTATIN CA80 M1 PO (13:28)
--- NOTE | 2016-06-24 15:15 | Discharge Summary ---
Visit Information Visit Dates Admission Date: 06/24/16 Discharge Date: 06/24/16 Hospital Course Course Attending Physician: CONRAD SMITH MD Primary Care Physician: BRAYAN REGAN,DMITRIY Gonzales Consulting Request: 1 Consulting Specialty: Orthopedics Consulting Physician: Lou Lopes MD Reason for Consult: right shoulder pain Consulting Request: 2 Consulting Specialty: Neurology Consulting Physician: DR. 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 His symptoms started with right shoulder pain , 7/10, and paresthesias that started at the elbow and spread to all fingers. Of note, he had been lifting heavy objects, as much as 30 lbs, from a height, a few days ago. He denied associated neck pain, bowel or bladder symptoms, speech chewing or swallowing difficulties, changes in vision, chest pain or palpitations. He reports a remote history of lumbar radiculopathy for which he has had a right foot drop in the past but which resolved nonoperatively. He had a recent aspiration and cortisone injection into the left knee. Vitals at the time of admission blood pressure 144/73, respiratory rate 16, pulse 78, MAXIMUM TEMPERATURE 99 saturating 96% on room air. On physical exam, he is alert and oriented 3 and in no acute distress sitting comfortably in bed. HEENT revealed PERRLA, moist mucous membranes. Cardiac examination of the neck did not reveal any JVD, cervical lymphadenopathy and no carotid bruit present. Chest was clear to auscultation bilaterally. CVS, normal S1, S2, no murmurs rubs or gallops appreciated. Abdominal exam was benign and abdomen soft, nontender, nondistended bowel sounds heard in all 4 quadrants. Examination of lower extremities did not reveal any edema. Neuro exam revealed cranial nerves II-12 grossly intact, plant physiologist 3/5, strength 3/5 in right upper extremity at the level of the wrist, 4/5 at the level of the elbow and 4/5 at the level of the shoulder joint. Strength was 5/5 in left upper extremity throughout. Strength is also 5 out of 5 in his lower extremities, plantars downgoing and reflexes 2+ in all 4 extremities. Sensations were grossly intact. Gait was evaluated and was normal, Romberg's test was negative. Examination of right upper extremity revealed tenderness on palpation in the subacromial joint, with pain on abduction of RUE. Labs pertinent for no white blood cell count of 10,600, H&H of 14.4/42.0 and a normal MCV of 93.1 and a platelet count of 168,000. Serum chemistries pertinent for sodium of 132, potassium of 4.2, bicarbonate of 24, anion gap of 13, BUN 18 and a creatinine of 0.8. Serum glucose was elevated to 118. LFTs were unremarkable with an AST/of 30/58, total bilirubin 0.9 alkaline phosphatase of 63. Last echocardiogram was in February 2010 which revealed diastolic filling pattern consistent with impaired left ventricular relaxation with an EF of 55%, mildly dilated aortic root. US Carotids: Plaque is present in the internal carotid arteries but velocity measurements are normal and there is no evidence to suggest a hemodynamically significant stenosis of greater than 50% diameter reduction. CT Head and cervical spine: 1. No acute intracranial findings. 2. Moderate multilevel degenerative changes of the cervical spine, most prominently seen on the left at C2-C3 and C3-C4. MRI Head: Only diffusion imaging obtained. Right arm weakness. Patient was extremely claustrophobic and refused to continue the examination. The diffusion acquisition is normal. There is no hydrocephalus or midline shift of structures. X ray Right Shoulder: No acute fracture or dislocation. The humeral head articulates appropriately with the glenoid. The joint space is maintained. Marginal osteophytes are seen at the inferior glenoid. Mild degenerative changes of the acromioclavicular joint is well. The visualized lung is clear. Problem List: 1. Right Shoulder pain/Right hand weakness secondary to right shoulder impingement syndrome possible rotator cuff pathology: The patient presented with right hand weakness, inability to completely make a fist, plant physiologist strength 3/5, started at 6:30 PM the evening prior to this admission, denied any chest pain, blurry vision, headaches, palpitations, weakness elsewhere, facial droop. As he has a history of arthritis and multiple degenerative disc disease, history of getting steroid injections in his knees in the past, and lifting heavy objects in the past couple of days, right shoulder X ray showing DJD, and evaluation by ortho, the etiology was found to be right shoulder impingement syndrome possible rotator cuff pathology. He received a steroid injection by ortho, and cleared for diacharge with the recommendation to continue with diclofenac for arthritis and pain. The patient was also evaluated by neurology and CVA was ruled out. Although he did not have stroke on this admission his ASCVD score was 43.1%. As the patient had significant risk factors for stroke, including hypertension, diabetes and smoking, he was extensively counsled regarding quitting smoking, and life style modifications including physical activity at least 3-4 times a week, 20-30 minutes a day and changing his diet. He was recommended to have more fruits and vegetables, white meat like fish, chicken, and cut down on prok, red meat, fatty fried foods and high sugar and starchy foods. He was also started on Aspirin 81 mg Po daily and Atorvastatin. 2. Car-[id number]-[id number] diabetes mellitus: Metformin was held upon admission and resumed upon discharged. During the hospital stay he was maintained on ISS. 3. History of hypertension: Blood pressure remains between 144-155 systolic blood pressure and 60-85 diastolic blood pressure and he was continued with lisinopril 20 mg by mouth daily, which is his home dose. 4. He was maintained on Carbohydrate consistent diet 5. Pain pathway: When necessary Tylenol/Vicodin/Percocet for mild/moderate/ severe pain respectively 6. Subcutaneous heparin for DVT prophylaxis was given 7. CODE STATUS: Full Allergies: Coded Allergies: NO KNOWN ALLERGIES (04/20/15) Pertinent Lab Results: Laboratory Tests 06/24/16 0630: Anion Gap 13, Estimated GFR > 60, BUN/Creatinine Ratio 23.3, Triglycerides 79, Cholesterol 134, LDL Cholesterol, Calc 76, HDL Cholesterol 43, Cholesterol/HDL Ratio 3, CBC w Diff NO MAN DIFF REQ, RBC 4.55 L, MCV 93.8, MCH 32.2 H, RDW 12.4, MPV 9.2, Gran % 79.6 H, Lymphocytes % 10.6 L, Monocytes % 8.6, Eosinophils % 1.0, Basophils % 0.2, Absolute Granulocytes 8.9 H, Absolute Lymphocytes 1.2, Absolute Monocytes 1.0 H, Absolute Eosinophils 0.1, Absolute Basophils 0, PUBS MCHC 34.3 06/24/16 0600: Lyme Disease Antibody 0.56 06/23/16 2159: Anion Gap 13, Estimated GFR > 60, BUN/Creatinine Ratio 22.5, Glucose 118 H, Hemoglobin A1c 6.6 H, Calcium 9.5, Total Bilirubin 0.9, AST 30, ALT 58, Alkaline Phosphatase 63, Total Protein 6.5, Albumin 4.1, Globulin 2.4, Albumin/ Globulin Ratio 1.7, PT 11.8, INR 1.13, D-Dimer 217, CBC w Diff NO MAN DIFF REQ, RBC 4.51 L, MCV 93.1, MCH 31.9 H, RDW 12.9, MPV 8.2, Gran % 79.5 H, Lymphocytes % 9.8 L, Monocytes % 9.1, Eosinophils % 1.3, Basophils % 0.3, Absolute Granulocytes 8.5 H, Absolute Lymphocytes 1.0 L, Absolute Monocytes 1.0 H, Absolute Eosinophils 0.1, Absolute Basophils 0, PUBS MCHC 34.3 Disposition Summary Disposition Principal Diagnosis: 1. Right shoulder pain secondary to right shoulder impingement syndrome possible rotator cuff pathology 2. Right hand weakness secondary to right shoulder impingement syndrome possible rotator cuff pathology Additional Diagnosis: 1. Hypertension 2. Diabetes Type 2 3. Current smoker Discharge Disposition: home or self care Discharge Instructions General Discharge Information Code Status: Full Code Patient's Diet: Heart Healthy and Diabetic Patient's Activity: As Tolerated Follow-Up Instructions/Appts: 1. Follow up with Dr. Sanchez after discharge 2. follow up with your PCP after discharge 3. COntinue with the new medications that have been started (Aspirin and Atorvastatin) 4. Make lifestyle modifications like physical activity 3-4 times a week and changing diet to more fruits and vegetables with less red meat and fatty foods. Medications at Discharge Discharge Medications: Continue taking these medications: Metformin HCl (Metformin HCl ER) 500 MG TAB.ER.24 1 Tablet ORAL DAILY Days = 30 Comments: not given Lisinopril (Lisinopril) 20 MG TABLET 1 Tablet ORAL DAILY Days = 30 Comments: given 06/24/16 @ 1130 Diclofenac Sodium (Diclofenac Sodium) 75 MG TABLET.DR 1 Tablet ORAL TWICE DAILY as needed for OSTEOARTHRITIS Days = 30 Comments: not given Start taking the following new medications: Aspirin (Aspirin*) 81 MG TAB.CHEW 81 Milligram ORAL DAILY Qty = 30 No Refills Comments: given 06/24/16 @ 1130 Atorvastatin Calcium (Atorvastatin Calcium) 80 MG TABLET 80 Milligram ORAL 5 PM Qty = 30 No Refills Comments: not given Copies To: SARAH REGAN,CONRAD; IJEOMA REGAN,LOU; BRAYAN REGAN,DMITRIY Gonzales; HEMA REGAN,JONATHAN Bear
== END 2016-06-24 14:46 | DRG 558 ==
LOC: ENRESERVDT → ENRESERVTM → ERH 21:20 → ERHI 06-24 00:26 → 1NO 06-24 01:55 → ENPENDDIS 06-24 13:28 → 1NO 06-24 14:46
PROVIDERS: Emergency Medicine; Internal Medicine Infectious Disease; ADMIT Internal Medicine
DX: M75.41 Impingement syndrome of right shoulder (principal); I10 Essential (primary) hypertension; E11.9 Type 2 diabetes mellitus without complications; Z79.84 Long term (current) use of oral hypoglycemic drugs; F17.200 Nicotine dependence, unspecified, uncomplicated
CPT/HCPCS: 1NSP; 70551; 86618; 73030-RT; 82436; 93005; 93010; 97165-GO; J1644; J3490

== ENCOUNTER 2016-09-21 05:00 | Inpatient (IN) | payer OTHER ==
[~2016-09-21] VITALS: Ht 195.6 cm; Wt 123.4 kg
[~2016-09-21 05:00] MED LIST: ASPIRIN81 M4 PO; ATORVASTATIN CA80 M1 PO; DICLOFENAC SODI75 M2 PO; LISINOPRIL20 M1 PO; METFORMIN HCL500 M2 PO; PROBIOTIC1 EACH PO; TYLENOL ARTHRI650 M1 PO; VITAMIN B-12500 MC2 PO; VITAMIN C500 M7 PO; VITAMIN D1000 UNIT PO
[2016-09-21] MEDS ORDERED: TYLENOL WITH C1 EACH PO (08:56)
--- NOTE | 2016-09-21 11:42 | Operative Report ---
Operative/Inv Procedure Report Surgery Date: 09/21/16 Name of Procedure: Left total knee arthroplasty Pre-Operative Diagnosis: Left knee osteoarthritis, left knee avascular necrosis Post-Operative Diagnosis: Same with final pathology pending Estimated Blood Loss: less than 50ml Surgeon/Pediatric Associate: IJEOMA REGAN,Mckinley BLAKE Anesthesia: block Implants: [place] triathlon total knee system-size 6 femur, size 6 tibia, 11 mm cruciate retaining polyethylene insert, 33 patella Drains: None Specimens: Femoral, tibial, patellar bone Microbiology: Urine Tourniquet: 63 minutes Complications: None Condition: Stable Operative Indication: Patient is a 71-year-old man who had a rapidly progressive onset of left knee pain. He was found to have findings of osteoarthritis but also the possibility of avascular changes within the medial femoral condyle. Due to these findings and natural history of these conditions, patient did not respond to conservative measures for any prolonged periods of time. He wished to proceed with total knee arthroplasty after risks, benefits and expectations were discussed which included but were not limited to persistent knee pain, need for subsequent surgery, infection, DVT, injury blood vessel or nerve, anesthesia risks Operative/Procedure Note Note: Patient was brought to the operating room and transferred to the operating table. Once under appropriate anesthesia the left lower extremity was prepped and draped in standard fashion. Preoperative IV antibiotics were given prophylactically. A standard anterior incision was made after the leg was elevated exsanguinated and tourniquet was inflated to 300 mm of pressure. Incision was taken down sharply to the underlying retinaculum. A medial retinacular approach was used with a minimal extension into the quadriceps tendon. Osteophytes were excised. There was tricompartmental osteoarthritic changes but most severe in the medial compartment. Soft tissues were dissected off of the anterior aspect the tibia and minimal dissection was taken around the medial corner to expose the medial tibial plateau. Remnants of the ACL and remnants of medial lateral meniscal tissues were excised.. After retractors were placed and osteophytes were excised a drill was used the enter the intramedullary canal the femur for the intramedullary guide for the distal femoral cut. 6 valgus cut was chosen. This cut was made. I then sized the femur to a size 6. The cutting jig was pinned in place and the cuts were made. I was satisfied with the sizing and preparation of the femur. I then turned my attention to the tibia. The external tibial alignment guide was pinned in place for a neutral cut from medial to lateral and reproducing patient's posterior slope based on preoperative templating and intraoperative findings. Soft tissues were protected posteriorly with the PCL retractor and medially and laterally with appropriate retractors. The cut was made. I then sized the tibia to a size 6. I did a trial reduction with a size 6 tibia size 6 femur and a 11 mm insert. He was taken out to full extension. Excellent stability and full flexion and mid flexion and full flexion to gravity. I then turned my attention to the patella. The patella was measured and the appropriate thickness was removed and restored the 33 mm patellar button. The 23 lug holes were drilled. 2 lug hole drills in the femur and the tibial rotation was marked all instruments were then removed from the knee. Copious irrigation the knee followed. I then finished preparation of the tibia with tibial punch. Copious irrigation followed as the cement was being mixed on the back table. Once the cement was ready was applied to the dry clean bony surfaces of the tibia. The size 6 tibia was impacted in place and the appropriate rotation. Excess cement was removed with curettes. Cement was applied to the dry clean bony surfaces of the distal femur. The size 6 femoral component was impacted in place and excess cement was removed with curettes. The 11 mm insert was placed and knee was taken out to full extension. This pressurized the interfaces. Cement was applied to the dry clean bony surfaces of the patella. The size 33 patella was impacted in place and excess cement was removed with a knife. As the cement was hardening I did a periarticular. Capsular injection of a cocktail which included ropivacaine with epinephrine and Toradol for postoperative pain and inflammation management. Once the cement was hardening took the knee through range of motion. I was satisfied with the 11 mm insert. I removed the trial. Copious irrigation the tibial tray followed to make sure there was no remaining soft tissue, bone fragments or cement fragments within this tibial tray. I then impacted the definitive size 11 mm cruciate retaining polyethylene. The locking mechanism was confirmed. The knee was taken through range of motion. I was satisfied with patellar tracking. No need for a lateral release. Excellent stability in full extension mid flexion and full flexion to gravity. Tourniquet was deflated at 63 minutes. Hemostasis was obtained. No need for a drain. I then closed the retinacular incision with a minimal extension to quadricep in standard fashion using #1 Vicryl suture. Every level of closure was followed by copious irrigation. Was closed with 2-0 Vicryl in 2 layers and skin was closed running 3-0 Vicryl suture with the knee in flexion. Appropriate just his were applied and patient was awakened and taken recovery room in good condition. No intraoperative complications. Blood loss was less than 50 mL Discharge Disposition: PACU
--- NOTE | 2016-09-21 17:25 | PN- Orthopedic ---
Subjective Subjective: POST-OP NOTE: No complaints. Tolerating clears. No nausea. Not yet out of bed. No dizziness. No chest pains. Objective Vital Signs and I&Os pacu flowsheet, urine output per ray (to be emptied in pacu) Physical Exam: General - alert & oriented x 3. comfortable. Lungs - clear bilaterally. no w/r/r. Cardiac - s1s2. reg. Abdomen - soft. nontender. - ray draining clear, yellow urine. Extremities - warm bilaterally. left knee dressing c/d/i. no drains. on q in place. nvi. athrombics active b/l. calves soft and nontender b/l. Current Medications: Current Medications Sig/Irma Start time Last Medication Dose Route Stop Time Status Admin Ropivacaine 500 ML ONCE ONE 09/21 1345 AC ON-Q Ball 1 BAG INJ / 1544 Vancomycin HCl 1,750 MG ONCE 09/21 0000 NR Sodium Chloride 500 ML IV 09/21 1429 Assessment/Plan Assessment/Plan This 71 year old white male with hx htn, niddm, arthritis, POD#0 s/p left total knee replacement for left knee osteoarthritis, and avascular necrosis (pathology pending) advance diet as tolerated pain control as ordered vanco doug-operatively d/c ray in am PT eval in am - wbat home meds re-ordered coumadin - dvt ppx f/u am labs d/c on q and change dressing POD#2 d/c planning will d/w Core Measures/Miscellaneous Venous Thromboembolism VTE Risk Factors: Age > 40, Obesity, Surgery VTE Contraindications: No Contraindications VTE Diagnosis: No Beta Diego Is Beta Diego a Home Med? No Antibiotics Is Patient on Antibiotics? Yes If Yes: prophylaxis
--- NOTE | 2016-09-21 17:55 | NUR ---
NURSING NOTE: PATIENT ARRIVED TO FLOOR VIA STRETCHER WITH DISTRIBUTION FROM PACU. PATIENT A/OX3, STATES PAIN IS TOLERABLE PER PATIENT. L KNEE WAN WRAP DRSG CDI. ICE PACK TO L KNEE IN PLACE. ONQ PUMP IN PLACE TO L ADDUCTOR CANAL @ 12ML/HR, ALL CLAMPS OPEN. PRADO CATHETER IN PLACE DRAINING CLEAR YELLOW URINE. + CMS NOTED TO ALL EXTREMITIES. VSS. WILL CONTINUE TO MONITOR.
[2016-09-21 18:00] VITALS: BP 142/78
[2016-09-21 20:31] VITALS: BP 148/72
[2016-09-21 22:28] VITALS: BP 156/76
[2016-09-22] VITALS: BP 146/76
[2016-09-22 04:09] VITALS: BP 142/78
[2016-09-22 08:04] VITALS: BP 146/70
[2016-09-22 08:41] LABS: ABSOLUTE BASOPHIL COUNT 0 /CUMM (0.0-0.2); ABSOLUTE EOSINOPHIL COUNT 0 /CUMM (0.0-0.7); ABSOLUTE GRANULOCYTE CT 7.8 /CUMM (1.4-6.5); ABSOLUTE LYMPH COUNT 1.4 /CUMM (1.2-3.4); ABSOLUTE MONOCYTE COUNT 1.2 /CUMM (0.10-0.60); BASOPHIL % 0.3 % (0.0-2.0); EOSINOPHIL % 0.4 % (0-5); GRANULOCYTE % 74.2 % (42.2-75.2); HEMATOCRIT 38.6 % (42-52); MEAN CORPUSCULAR HGB 33.1 PG (27.0-31.0); MEAN CORPUSCULAR HGB CONC 34.6 G/DL (33.0-37.0); MEAN CORPUSCULAR VOLUME 95.8 FL (80.0-94.0); MEAN PLATELET VOLUME 9.1 FL (7.4-10.4); PLATELET COUNT 170 /CUMM (130-400); RBC DISTRIBUTION WIDTH 12.7 % (11.5-14.5); RED BLOOD CELL CT 4.03 /CUMM (4.70-6.10); WHITE BLOOD CELL COUNT 10.5 /CUMM (4.8-10.8)
[2016-09-22 08:42] LABS: PT 12.5 SEC (9.4-12.5)
[2016-09-22 12:03] VITALS: BP 144/68
--- NOTE | 2016-09-22 12:38 | PN- Orthopedic ---
Surgical Brief Attending Note Brief Attending Note: Patient is fairly comfortable at this time. Vital signs stable Dressings clean and dry. Neuro intact. Calf is soft and nontender Status post left total knee arthroplasty for primary osteoarthritis of the knee/ final pathology pending. There may be an additional diagnosis of avascular necrosis based on intraoperative findings. PT/rehabilitation. Anticoagulation.
[2016-09-22 16:49] VITALS: BP 132/68
[2016-09-22 22:30] VITALS: BP 157/78
[2016-09-23 07:45] VITALS: BP 135/75
[2016-09-23 08:53] LABS: PT 14.9 SEC (9.4-12.5)
--- NOTE | 2016-09-23 08:59 | PN- Orthopedic ---
Subjective Subjective: Reports pain improved significantly with toradol. Doing well with PT. Cleared stairs this morning and anticipates going home shortly. No dizziness. No shortness of breath. No chest pains. Tolerating diet. Voiding well. Passing flatus but no bm yet. Has walker at home. Objective Vital Signs and I&Os Vital Signs Date Time Temp Pulse Resp B/P B/P Pulse O2 O2 Flow FiO2 Mean Ox Delivery Rate 09/23 0745 98.1 77 20 135/75 98 Room Air 09/22 2230 98.4 83 20 157/78 97 Room Air 09/22 1649 99.4 72 20 132/68 98 09/22 1203 99.0 77 20 144/68 99 Room Air 09/22 1031 73 146/70 Intake & Output 09/23 1600 09/23 0800 09/23 0000 09/22 1600 09/22 0800 09/22 0000 Intake Total 500 855 840 780 Output Total 044 898 8855 600 1000 700 Balance -700 -400 -420 -600 -160 80 Intake, IV 20 375 600 300 Intake, Oral 480 480 240 480 Number 0 Bowel Movements Output, Urine 704 920 7336 600 1000 700 Patient 272 lb Weight Weight Reported by Patient Measurement Method Physical Exam: General - alert & oriented x 3. comfortable. out of bed to chair. no acute distress. Lungs - clear bilaterally. no w/r/r. Cardiac - s1s2. reg. Abdomen - soft. nontender. Extremities - warm bilaterally. no c/c/e. dressing removed from left leg. incision approximated with steri strips. no exudates or erythema. calves soft and nontender b/l. nvi. on q removed. Current Medications: Current Medications Sig/Irma Start time Last Medication Dose Route Stop Time Status Admin Docusate Sodium 100 MG BID 09/23 1000 UNVr PO Docusate Sodium 100 MG DAILY NEEDED PRN 09/21 1800 DC 09/22 PO 1031 Hydromorphone HCl 4 MG ONCE ONE 09/23 0900 UNVr PO 09/23 0901 Ketorolac 15 MG ONCE ONE 09/23 0430 DC 09/23 Tromethamine IV 09/23 0431 0435 Ketorolac 15 MG ONCE ONE 09/22 1530 DC 09/22 Tromethamine IV 09/22 1531 1559 Lisinopril 20 MG DAILY 09/22 1000 AC 07/19 PO 0849 Metformin HCl 500 MG DAILY 09/22 1000 AC 09/23 PO 0849 Morphine Sulfate 2 MG Q3P PRN 09/21 1800 DC IV Morphine Sulfate 4 MG Q3P PRN 09/21 1800 DC IV Ondansetron HCl 4 MG Q6P PRN 09/21 1800 AC IV Oxycodone/ 1 TAB Q4P PRN 09/21 1800 AC Acetaminophen PO Oxycodone/ 2 TAB Q4P PRN 09/21 1800 AC 09/23 Acetaminophen PO 0259 Patient Medication 1 ED .STK-MED ONE 09/22 1425 DC Teaching ED 09/22 1426 Polyethylene Glycol 17 GM DAILY NEEDED PRN 09/21 1800 AC PO Ropivacaine 500 ML ONCE ONE 09/21 1345 DC ON-Q Ball 1 BAG INJ 09/23 1544 Senna/Docusate Sodium 2 TAB AT BEDTIME NEED.. 09/21 1800 AC PO Sodium Chloride 1,000 ML .[id number] 09/21 1800 DC 09/21 IV 1856 Warfarin Sodium 5 MG COUMADIN 1700 ONE 09/22 1700 DC 09/22 PO 09/22 1701 1559 Results Last 48 Hours of Labs: Laboratory Tests 09/23 09/22 0720 0655 Chemistry Sodium (137 - 145 mmol/L) Pending 135 L Potassium (3.5 - 5.1 mmol/L) Pending 4.3 Chloride (98 - 107 mmol/L) Pending 99 Carbon Dioxide (22 - 30 mmol/L) Pending 25 Anion Gap (5 - 16) Pending 11 BUN (9 - 20 mg/dL) Pending 13 Creatinine (0.7 - 1.2 mg/dL) Pending 0.7 Estimated GFR (>60 ml/min) > 60 BUN/Creatinine Ratio (7 - 25 %) Pending 18.6 Coagulation PT (9.4 - 12.5 SEC) Pending 12.5 INR (0.90 - 1.17) Pending 1.19 H Hematology CBC w Diff Pending NO MAN DIFF REQ WBC (4.8 - 10.8 /CUMM) Pending 10.5 RBC (4.70 - 6.10 /CUMM) Pending 4.03 L Hgb (14.0 - 18.0 G/DL) Pending 13.4 L Hct (42 - 52 %) Pending 38.6 L MCV (80.0 - 94.0 FL) Pending 95.8 H MCH (27.0 - 31.0 PG) Pending 33.1 H RDW (11.5 - 14.5 %) Pending 12.7 Plt Count (130 - 400 /CUMM) Pending 170 MPV (7.4 - 10.4 FL) Pending 9.1 Gran % (42.2 - 75.2 %) 74.2 Lymphocytes % (20.5 - 51.1 %) 13.7 L Monocytes % (1.7 - 9.3 %) 11.4 H Eosinophils % (0 - 5 %) 0.4 Basophils % (0.0 - 2.0 %) 0.3 Absolute Granulocytes (1.4 - 6.5 /CUMM) 7.8 H Absolute Lymphocytes (1.2 - 3.4 /CUMM) 1.4 Absolute Monocytes (0.10 - 0.60 /CUMM) 1.2 H Absolute Eosinophils (0.0 - 0.7 /CUMM) 0 Absolute Basophils (0.0 - 0.2 /CUMM) 0 PUBS MCHC (33.0 - 37.0 G/DL) Pending 34.6 Assessment/Plan Assessment/Plan This 71 year old male with hx htn, niddm, is POD#2 s/p left total knee arthroplasty for left knee osteoarthritis, left knee avascular necrosis tolerating diet try dilaudid instead of percocet for pain control f/u labs coumadin accordingly - dvt ppx on q removed and dressing changed continue PT. cleared for home today already seen and examined by today d/c home with services Core Measures/Miscellaneous Venous Thromboembolism VTE Risk Factors: Age > 40, Obesity, Surgery VTE Contraindications: No Contraindications VTE Diagnosis: No Beta Diego Is Beta Diego a Home Med? No Antibiotics Is Patient on Antibiotics? Yes If Yes: prophylaxis
--- NOTE | 2016-09-23 09:01 | Patient Discharge Instructions ---
Discharge Instructions General Discharge Information You were seen/treated for: Left knee osteoarthritis, left knee avascular necrosis (pending pathology) You had these procedures: urgery Date: 09/21/16 Name of Procedure: Left total knee arthroplasty Watch for these problems: fever>101.3, redness/swelling/drainage, dizziness, shortness of breath, chest pains No bath, but you may shower: Yes Other wound care: keep incision clean & dry Special Instructions: blood draws for PT/INR for coumadin dose adjustment Diet Continue normal diet: No Recommended Diet: Diabetic Additional DIET Information: coumadin considerations Activity Full Activity/No Limits: Yes Activity Self Limited: Yes Activity Limited to: Weight bear as tolerated Other activity limits: rolling walker assistance Additional ACTIVITY Info: continue PT Acute Coronary Syndrome Inclusion Criteria At DC or during hospital stay patient has or had the following: ACS DIAGNOSIS No Discharge Core Measures Meds if any: Prescribed or Continued at Discharge Meds if any: NOT Prescribed or Continued at Discharge Congestive Heart Failure Inclusion Criteria At DC or during hospital stay patient has or had the following: CHF DIAGNOSIS No Discharge Core Measures Meds if any: Prescribed or Continued at Discharge Meds if any: NOT Prescribed or Continued at Discharge Cerebrovascular accident Inclusion Criteria At DC or during hospital stay patient has or had the following: CVA/TIA Diagnosis No Discharge Core Measures Meds if any: Prescribed or Continued at Discharge Meds if any: NOT Prescribed or Continued at Discharge Venous thromboembolism Inclusion Criteria VTE Diagnosis No VTE Type NONE VTE Confirmed by (Test) NONE Discharge Core Measures - Per Current guidelines, there needs to be overlap - treatment for the first 5 days of Warfarin therapy. - If discharged on Warfarin prior to 5 days of - overlap therapy, the patient will need to be - assessed for post discharge needs including - *Post discharge parental anticoagulation - *Warfarin and/or parental anticoagulation education - *Follow up date to check INR post discharge At least 5 days overlap therapy as Inpatient No Meds if any: Prescribed or Continued at Discharge Note: Overlap Therapy is Warfarin and Anticoagulant Meds if any: NOT Prescribed or Continued at Discharge
[2016-09-23 09:02] LABS: ABSOLUTE BASOPHIL COUNT 0 /CUMM (0.0-0.2); ABSOLUTE EOSINOPHIL COUNT 0.1 /CUMM (0.0-0.7); ABSOLUTE LYMPH COUNT 1.7 /CUMM (1.2-3.4); ABSOLUTE MONOCYTE COUNT 1.1 /CUMM (0.10-0.60); BASOPHIL % 0.5 % (0.0-2.0); EOSINOPHIL % 0.9 % (0-5); GRANULOCYTE % 70.2 % (42.2-75.2); HEMATOCRIT 40.5 % (42-52); MEAN CORPUSCULAR HGB CONC 34.3 G/DL (33.0-37.0); MEAN CORPUSCULAR VOLUME 96.2 FL (80.0-94.0); MEAN PLATELET VOLUME 9.2 FL (7.4-10.4); PLATELET COUNT 176 /CUMM (130-400); RBC DISTRIBUTION WIDTH 12.7 % (11.5-14.5); RED BLOOD CELL CT 4.21 /CUMM (4.70-6.10)
[2016-09-23] MEDS ORDERED: MIRALAX119 GM PO (09:14)
[2016-09-23] MEDS ORDERED: COUMADIN5 M2 PO (09:14)
[2016-09-23] MEDS ORDERED: DILAUDID2 M1 PO ×2 (09:14→09:17)
[2016-09-23] MEDS ORDERED: DOCUSATE SODIU100 M3 PO (09:14)
--- NOTE | 2016-09-23 09:26 | Surgical Discharge Summary ---
Visit Information Visit Dates Admission Date: 09/21/16 Discharge Date: 09/23/16 History of Present Illness Chief Complaint: Left knee pain related to Left knee osteoarthritis, possible left knee avascular necrosis Medical History Blood Transfusion Hx: No Neurological: NONE EENT: NONE Cardiovascular: hypertension Respiratory: NONE Gastrointestinal: NONE Hepatic: NONE Renal: NONE Musculoskeletal: osteoarthritis Psychiatric: NONE Endocrine: diabetes Blood Disorders: NONE Cancer(s): NONE [employer]/Reproductive: NONE History of MRSA: No History of VRE: No History of CDIFF: No Isolation History: Standard Tetanus Vaccine: 04/20/15 Surgical History Pertinent Surgical History: none Psychosocial History Where Do You Live? Home Who Do You Live With? Spouse Services at Home: None What is Your Primary Language? Greek Review of Systems: see h&p Hospital Course Course Attending Physician: IJEOMA REGAN,LOU Primary Care Physician: DMITRIY SCHMIDT MD Hospital Course: Electively scheduled left total knee arthroplasty on 09/21/16 for left knee pain related to left knee osteoarthritis, left knee avascular necrosis (final pathology pending). Routine post-operative care including PT, coumadin for anticoagulation, and iv to oral pain medication. Evaluated and treated by PT, with clearance for home disposition with continued services at home. Dose adjustment of coumadin as per blood draws for PT/INR. Complications: None Allergies: Coded Allergies: NO KNOWN ALLERGIES (NKA 09/18/16) Pertinent Lab Results: INR 1.42 (09/23/16) Disposition Summary Disposition Principal Diagnosis: Left knee osteoarthritis, left knee avascular necrosis Additional Diagnosis: same as above s/p Left total knee arthroplasty (09/21/16) Discharge Disposition: home health services Discharge Instructions General Discharge Information Code Status: Full Code Patient's Diet: diabetic diet. coumadin considerations. Patient's Activity: weight bearing as tolerated. rolling walker assistance. Follow-Up Instructions/Appts: call to schedule follow up appointment in 3-4 weeks, if not previously scheduled continue PT blood draws for PT/INR, for coumadin dosing pre-printed instructions and prescriptions provided at the time of discharge Medications at Discharge Discharge Medications: Stop taking the following medications: Diclofenac Sodium (Diclofenac Sodium) 75 MG TABLET.DR ORAL TWICE DAILY as needed for OSTEOARTHRITIS Days = 30 Acetaminophen (Tylenol Arthritis) 650 MG TABLET.ER ORAL TWICE DAILY Tylenol With Codeine (Tylenol With Codeine #3 Tablet) 300 MG-30 MG TABLET ORAL EVERY 4-6 HRS as needed for PAIN Continue taking these medications: Metformin HCl (Metformin HCl ER) 500 MG TAB.ER.24 1 Tablet ORAL DAILY Days = 30 Comments: not given Lisinopril (Lisinopril) 20 MG TABLET 1 Tablet ORAL DAILY Days = 30 Comments: given 06/24/16 @ 1130 Aspirin (Aspirin*) 81 MG TAB.CHEW 81 Milligram ORAL DAILY Qty = 30 Comments: given 06/24/16 @ 1130 Cholecalciferol (Vitamin D3) (Vitamin D) 1,000 UNIT TABLET 1 Tablet ORAL DAILY Ascorbic Acid (Vitamin C) 500 MG CAPSULE.ER 1 Capsule ORAL DAILY Cyanocobalamin (Vitamin B-12) (Vitamin B-12) 500 MCG TABLET 1 Tablet ORAL Every Day Lactobacillus Acidophilus (Probiotic) 10 BILLION CELL CAPSULE 1 Capsule ORAL Every Day Start taking the following new medications: Docusate Sodium (Docusate Sodium) 100 MG CAPSULE 100 Milligram ORAL TWICE DAILY Qty = 20 No Refills Instructions: stool softener. hold for loose stool. Polyethylene Glycol 3350 (Miralax) 17 GRAM/DOSE POWDER 17 Gram ORAL DAILY NEEDED as needed for NO BM IN TWO DAYS Qty = 1 No Refills Warfarin Sodium (Coumadin) 5 MG TABLET 1 Tablet ORAL DAILY Qty = 30 No Refills Instructions: dose adjustment as per blood draws for PT/INR. goal INR 2-3. Hydromorphone HCl (Dilaudid) 2 MG TABLET 1-2 Tablet ORAL EVERY 4-6 HOURS NEEDED as needed for pain control Qty = 36 No Refills Copies To: BRAYAN REGAN,DMITRIY Gonzales
--- NOTE | 2016-09-23 11:01 | NUR ---
NURSING NOTE: PATIENT LEFT FLOOR VIA WHEELCHAIR WITH [facility] STAFF TO [facility] FOR DISCHARGE WITH HOME HEALTH SERVICES. PATIENT TO MEET SPOUSE WITH CAR AT [facility]. PATIENT INSTRUCTED TO [facility] AT [facility]. ALL OTHER PAPER PRESCRIPTIONS GIVEN TO PATIENT. DISCHARGE INSTRUCTIONS EXPLAINED TO PATIENT AND SPOUSE. ALL PAPERWORK LEFT WITH SPOUSE. PATIENT'S PAIN CONTROLLED AT THIS TIME. ICE PACKS, DRSGS, GIVEN TO PATIENT FOR HOME SERVICES. IV DISCONTINUED.
== END 2016-09-23 10:55 | disposition home health service (06) | DRG 470 ==
LOC: SDA 05:00 → ENRESERV 16:05 → ENTRNSPT 17:10 → 2NB 17:42 → ENPENDDIS 09-23 09:05 → 2NB 09-23 10:55
PROVIDERS: Nurse Practitioner; Physician Assistant Surgical; ADMIT Orthopaedic Surgery
PROC: 0SRD0J9 Replacement of Left Knee Joint with Synthetic Substitute, Cemented, Open Approach (ICD-10-PCS; principal; 2016-09-21)
DX: M17.12 Unilateral primary osteoarthritis, left knee (principal); M87.9 Osteonecrosis, unspecified; I10 Essential (primary) hypertension; M87.852 Other osteonecrosis, left femur; E11.9 Type 2 diabetes mellitus without complications; Z79.84 Long term (current) use of oral hypoglycemic drugs; M25.762 Osteophyte, left knee
CPT/HCPCS: 2NBSP; 36415; 82436; 87086; 88305; 97110-GO; 97116-GO; 97161-GP; 97530-GO; C1713; J0131; J0171; J1885; J2405; J2795; J3370; J7040